=== PATIENT | female | born 2000 | race African-American/Black ===

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

== ENCOUNTER 2019-08-06 21:08 | Emergency (ER) | payer OTHER ==
[~2019-08-06] VITALS: Ht 162.6 cm; Wt 62.3 kg
[2019-08-06 21:09] VITALS: BP 136/64
== END 2019-08-06 22:46 | disposition home or self-care (01) ==
LOC: M ED 21:08
DX: Z32.01 Encounter for pregnancy test, result positive (principal)

== ENCOUNTER 2019-09-20 01:58 | Emergency (ER) | payer OTHER ==
[~2019-09-20] VITALS: Ht 162.6 cm; Wt 67.2 kg
[2019-09-20] MEDS ORDERED: PREN29TA4 PO (02:13)
[2019-09-20 03:30] VITALS: BP 120/77
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
== END 2019-09-20 04:28 | disposition home or self-care (01) ==
LOC: M ED 01:58
DX: O9A.211 Injury, poisoning and certain other consequences of external causes complicating pregnancy, first trimester (principal); S30.1XXA Contusion of abdominal wall, initial encounter; V43.52XA Car driver injured in collision with other type car in traffic accident, initial encounter; Z3A.10 10 weeks gestation of pregnancy; Z79.899 Other long term (current) drug therapy

== ENCOUNTER 2020-02-24 04:22 | Emergency (ER) | payer OTHER ==
[~2020-02-24] VITALS: Ht 167.6 cm; Wt 75.0 kg
[~2020-02-24 04:22] MED LIST: PREN29TA4 PO
--- NOTE | 2020-02-24 06:50 | REPVR ---
PROCEDURE INFORMATION: Exam: US , Limited Exam date and time: 02/24/2020 6:40 AM Age: 19 years old Clinical indication: Pain; Other: Fall; Gestational age or lmp: 32; ; Additional info: Fall, 32 weeks sharp abdominal pain TECHNIQUE: Imaging protocol: Real-time ultrasound of the maternal uterus with image documentation. Exam focused on the clinical indication. COMPARISON: CT ABD/PEL W/IV CONTRAST ONLY 06/10/2018 12:44 AM FINDINGS: Gestation: There is a single intrauterine gestation. Heart rate: A heartbeat was detected with a rate of 140 bpm. Presentation: The lie is vertex. Placenta: The placenta is anterior with no evidence of placenta previa or retroplacental hemorrhage. Amniotic fluid index: The amniotic fluid index measures 11.6 cm. MATERNAL: Cervix: The cervix was not optimally visualized, due to positioning of the head. The best estimate of its length is 3.3 cm. IMPRESSION: 1. Single, live intrauterine . 2. Amniotic fluid index of 11.6 cm, within normal limits. Electronically signed by: Jessica Santos On 02/24/2020 06:49:56 AM
[2020-02-24 07:07] LABS: HEMATOCRIT 31.2 % (36.0-47.0); HEMOGLOBIN 10.1 g/dl (12.0-15.5); MEAN CORPUSCULAR HEMOGLOBIN 27.1 pg (27.0-33.0); MEAN CORPUSCULAR HGB CONC 32.4 g/dl (32.0-36.5); MEAN CORPUSCULAR VOLUME 83.6 fl (80.0-96.0); PLATELET COUNT, AUTOMATED 217 10^3/uL (150-450); RED BLOOD COUNT 3.73 10^6/uL (4.00-5.40); WHITE BLOOD COUNT 9.3 10^3/uL (4.0-10.0)
[2020-02-24 07:40] VITALS: BP 116/68
[2020-02-24] MEDS ORDERED: VITA-158 PO (10:41)
== END 2020-02-24 07:42 | disposition admitted as inpatient to this hospital (09) ==
LOC: M ED 04:22
DX: O9A.213 Injury, poisoning and certain other consequences of external causes complicating pregnancy, third trimester (principal); R10.2 Pelvic and perineal pain; W18.30XA Fall on same level, unspecified, initial encounter; Y92.89 Other specified places as the place of occurrence of the external cause; Z3A.32 32 weeks gestation of pregnancy

== ENCOUNTER 2020-02-24 07:45 | Outpatient (CLI) | payer OTHER ==
[~2020-02-24] VITALS: Ht 167.6 cm; Wt 74.3 kg
[2020-02-24] MEDS ORDERED: LR 1,000 ML IV ONE (08:30)
[2020-02-24 09:13] LABS: INR 1.09; PROTHROMBIN TIME 13.8 SECONDS (11.8-14.0)
[2020-02-24 09:15] LABS: PARTIAL THROMBOPLASTIN TIME 30.1 SECONDS (25.0-38.4)
[2020-02-24] MEDS ORDERED: LR 1,000 ML IV SCH (09:30)
[2020-02-24] MEDS ORDERED: VITA-158 PO (10:41)
== END 2020-02-24 12:30 | disposition home or self-care (01) ==
LOC: M LDO 07:45
PROVIDERS: ATTEND Advanced Practice Midwife
DX: Z04.3 Encounter for examination and observation following other accident (principal); X58.XXXA Exposure to other specified factors, initial encounter; R10.30 Lower abdominal pain, unspecified; Z3A.32 32 weeks gestation of pregnancy
CPT/HCPCS: 36415; 59025; 85610; 85730; G0378; G0463

== ENCOUNTER 2020-04-15 17:59 | Outpatient (CLI) | payer OTHER ==
[~2020-04-15] VITALS: Ht 165.1 cm; Wt 79.0 kg
[~2020-04-15 17:59] MED LIST changes: +VITA-158 PO
[2020-04-15 18:25] VITALS: BP 145/84
[2020-04-15] MEDS ORDERED: FERR325T3 PO (23:21)
--- NOTE | 2020-04-16 09:26 | HPE ---
DATE OF ADMISSION: 04/15/2020 HISTORY: 20-year-old, 1, last menstrual period (LMP) 07/10/2019, estimated date of confinement (EDC) 04/15/2020, at 40 weeks of gestation, contractions 5 minutes apart, moderate intensity. No vaginal bleeding or loss. RISK FACTORS: She is a GDMA1, family history of Downs, [id number] 21 negative and she has anemia. Labs are A+, HIV negative, hep negative, RPR negative, rubella immune. Varicella immune. Gonorrhea and chlamydia are negative. The 28-week glucose was 157. Her 3-hour GTT her fasting was 89, 1-hour 180, 2-hour 176, 3-hour 130. She is GBS positive. Urine is 1.005, pH 7, plus leuk's. Temperature is 98.6, respirations 18, pulse 83, blood pressure 145/84. Examination, no distress. Category 1 strip. Cervix posterior 1 cm, -3 station, vertex, thick. Plan is to readmit her in 3 hours for induction of labor at term. Discharge presently with discharge instructions. She was discharged, counseled and undelivered.
== END 2020-04-15 19:30 ==
LOC: M LDO 17:59
PROVIDERS: ATTEND Obstetrics & Gynecology
DX: O47.1 False labor at or after 37 completed weeks of gestation (principal); Z3A.40 40 weeks gestation of pregnancy

== ENCOUNTER 2020-04-15 22:12 | Inpatient (IN) | payer OTHER ==
[~2020-04-15] VITALS: Ht 165.1 cm; Wt 79.0 kg
[2020-04-15 22:36] VITALS: BP 131/68
[2020-04-15] MEDS ORDERED: PENICILLIN G POTASSIUM IV 5 MU in D5W MINI-BAG PLUS 100 ML IV STA (23:07)
[2020-04-15] MEDS: LR 1,000 ML IV SCH (23:07)
[2020-04-15] MEDS ORDERED: LACTATED RINGER'S 1000 ML IV ONE (23:15)
[2020-04-15] MEDS ORDERED: FERR325T3 PO (23:21)
[2020-04-16] VITALS (58 sets, daily range): BP systolic 97–144; BP diastolic 54–98
[2020-04-16 00:04] LABS: HEMATOCRIT 34.1 % (36.0-47.0); HEMOGLOBIN 10.9 g/dl (12.0-15.5); MEAN CORPUSCULAR HEMOGLOBIN 26.9 pg (27.0-33.0); MEAN CORPUSCULAR VOLUME 84.2 fl (80.0-96.0); PLATELET COUNT, AUTOMATED 237 10^3/uL (150-450); RED BLOOD COUNT 4.05 10^6/uL (4.00-5.40)
[2020-04-16 00:21] LABS: GLUCOSE,RANDOM 41 MG/DL (LESS THAN 200)
[2020-04-16 00:34] LABS: HEMOGLOBIN A1c 5.5 %
[2020-04-16] MEDS ORDERED: PROMETHAZINE INJ 25 MG/ML VIAL (J2550) IV ONE (02:00)
[2020-04-16] MEDS ORDERED: BUTORPHANOL 2 MG/ML INJ (J0595) IV ONE (02:00)
[2020-04-16] MEDS: PENICILLIN G POTASSIUM IV 2.5 MU in IV 1 EA IV SCH ×5 (03:32→19:02)
[2020-04-16] MEDS ORDERED: FENTANYL 2MCG/ML ROPIVACAINE 0.2% IN 0.9% NACL 100ML IVBAG As Ordered ONE ×2 (07:59→17:47)
--- NOTE | 2020-04-16 09:25 | HPE ---
DATE OF ADMISSION: 04/15/2020 HISTORY: This is a 20-year-old, 1, para 0, last menstrual period (LMP) 07/10/2019, estimated date of confinement (EDC) 04/15/2020, at 40 and 1 weeks of gestation was admitted for initially induction of labor, was having contractions 4-5 minutes apart moderate intensity. No vaginal bleeding or discharge. RISK FACTORS: She is GDMA1. She has a family history of Downs, [id number] was negative, and she has anemia. Labs are A+, HIV negative, hepatitis negative, RPR negative, rubella immune. Varicella immune. Gonorrhea and chlamydia are negative. Her 28-week GTT was 157. Her 3-hour GTT following her fasting was 89. Her 1-hour was 180. Her 2-hour was 176 and 3-hour was 130. Presently, she is distressed with contractions. She has a category 1 strip with some variables, but baseline is within normal limits and she has moderate variability. The cervix is still posterior 1 cm, -3 and thick. No vaginal bleeding or loss. Temperature 98.6, blood pressure is 131/68, respirations are 17, pulse is 81. The rest of the examination unremarkable. She is normocephalic, atraumatic. Neck full range of motion. Pupils equal and reactive to light. Distal pulses symmetric. No evidence of deep venous thrombosis (DVT), pulmonary embolism (PE) or superficial phlebitis. Chest is clear bilaterally bases. No wheezes or rhonchi. No costovertebral angle (CVA) tenderness. Abdomen soft. Four quadrant bowel sounds are noted. Symphysis fundus height is appropriate. No rashes, lesions or pruritus. No arthralgia or myalgia. No complaints of cough, wheeze, shortness of breath or dyspnea on exertion. No bleeding. Neuro complete. No bruising. No incontinency, urgency or frequency. No heat or cold or diabetic issues. She has never had any sexually transmitted diseases (STDs). Has a normal Pap smear. Past medical, surgical history is unremarkable. Family history is noncontributory. She does not smoke, drink, abuse drugs. She is to a soldier. No domestic violence. Good support system. We discussed vaginal delivery, which is delivery through the vagina, possibly use of forceps or vacuum devices if needed for maternal indications, forceps or vacuum device to consist with vaginal delivery when normal pushing efforts cannot achieve delivery on their own or when delivery is needed in an emergency for baby's well-being. Medications used to induce or augment labor in order achieve vaginal delivery may be used, an episiotomy may be required to help baby deliver vaginally and may also require repair of any lacerations or tears of the vagina or vulva that are caused at delivery, in some cases emergencies arise such as emergency section, which is used for and maternal indications because continuing labor may not be as safe as having an immediate delivery, risks of vaginal delivery not limited to bleeding, infection, injury of vagina, pelvic structures, injury to baby, damage to the uterus, reaction to anesthesia, uterine rupture, risk of hysterectomy for life-threatening bleeding abnormalities, emergency section for abnormalities may increase risk of hysterectomy or hemorrhage. Also, additional risk for forceps or vacuum include scratches, hematomas to the head or intracranial bleed or injury to bowel or bladder. The patient verbalized understanding, has consented to continue. Safe to proceed. Will monitor contractions. She has had routine blood work done. Hemoglobin was 10.9, hematocrit is 34.1, and platelets were 237. Also ordered was hemoglobin A1c and random sugar which are not available at the present time. They are still pending.
[2020-04-16] MEDS ORDERED: diphenhydrAMINE 50MG/ML VIAL (J1200) IV PRN (09:30)
[2020-04-16] MEDS ORDERED: LACTATED RINGER'S 1000 ML IV PRN (09:30)
[2020-04-16] MEDS ORDERED: NALOXONE INJ 0.4MG/1ML VIAL (J2310 PER 1MG) IV PRN (09:30)
[2020-04-16] MEDS ORDERED: ONDANSETRON 4MG/2ML VIAL IV PRN (09:30)
[2020-04-16] MEDS ORDERED: REFRIGERATOR IV KEYS XX PRN (09:30)
[2020-04-16] MEDS ORDERED: EPIDURAL COMMENT XX SCH (09:30)
[2020-04-16] MEDS ORDERED: EPIDURAL/PCA KEYS XX PRN (09:30)
[2020-04-16] MEDS: FENTANYL/ROPIVACAINE/NACL BAG 100 ML EPIDURAL SCH ×2 (09:33→18:01)
[2020-04-16] MEDS: LR 1,000 ML IV SCH ×3 (12:04→18:46)
--- NOTE | 2020-04-16 12:08 | IPN ---
DATE: 04/16/2020 This lady is a 1, para 0, admitted at 40 and 1 week of gestation. She was supposed to be induced because of AGDM1. However, she did come in with spontaneous labor. In reviewing her overnight, she did have some significant low blood sugars. When we did her random blood sugar it was 41 and this reflected in the monitoring. We did give her some snacks and she does say that overnight or before she goes to bed her blood sugars are extremely low. Repeating a fingerstick it was at 71 and again this morning it was below 90. She was again given some peanut butter and orange juice in order to bring her blood sugar up. She did have a 3-hour GTT of which it appears that she failed 2 of the 4, but she has been only on diet and looking at her blood sugars over her chart they appear to be within good control. She presently has a category 2 strip. She was evaluated on spontaneous contractions, is 4 cm with bulging membranes. She is requesting an epidural. At this point, we are going await for epidural and our plan of care is when she is comfortable to do an artifical rupture of membranes (AROM), evaluate the fluid and assess contraction pattern. At present time, category 2 strip, no evidence of deceleration and some reduced variability. We will monitor her closely.
[2020-04-16] MEDS: ePHEDrine SULFATE 25 MG/5 ML(5MG/ML) SYRINGE IV PRN ×2 (12:19→13:17)
[2020-04-16] MEDS ORDERED: OXYTOCIN 30 UNITS IN 0.9% NaCl 500ML IV BAG (J2590) As Ordered ONE (13:02)
--- NOTE | 2020-04-16 14:52 | REP ---
FOLLOWUP OB ULTRASOUND: 04/16/2020. COMPARISON: 02/24/2020 CLINICAL HISTORY: Unstable supervision of . Unstable lie in labor, position and weight requested. FINDINGS: By initial ultrasound, she would be 40 weeks 1 day. There is a single intrauterine gestation in vertex position. Cervix is obscured by shadowing from the skull. There is an anterior grade 2 placenta without previa or abruption. Amniotic fluid volume is visually normal. The index measurement is 11.6 with normal JERMAINE 7.1 - 21.2. Largest fluid pocket 4.4 cm. Mid cord umbilical artery Doppler shows an S/D ratio 2.36, normal. Forward diastolic flow was maintained throughout. No evidence of a nuchal cord. BIOMETRY:BPD 8.4 cm = 34 weeksHC 31.9 cm = 36 weeksAC 31.4 cm = 35 weeks 6 daysFL 7.7 cm = 39 weeks 2 daysHL 6.5 cm = 38 weeks This gives average ultrasound age 36 weeks 4 days. By initial ultrasound, she would be 40 weeks 1 day with EDC 04/15/2020. Measurements for this dating are less than 5th percentile for BPD, HC, and AC. The measurement ratios were all in the normal range with FL/AC as upper range normal at 0.24. Heart rate 150. Estimated weight: 2955 grams or 6 pounds 8 ounces. This represents less than expected growth. Electronically Signed by Cy Badillo MD 04/16/2020 07:05 P
[2020-04-16] MEDS ORDERED: OXYTOCIN DRIP 30 UNITS in IV 1 EA IV SCH ×2 (16:30→22:58)
[2020-04-16 22:55] LABS: CORD GAS ABE V -4.7; CORD GAS HCO3 V 20.7 MEQ/L; CORD GAS O2 SAT V 74.3 %; CORD GAS PCO2 V 39.4 mmHg; CORD GAS PH V 7.338 UNITS; CORD GAS PO2 V 33.6 mmHg; CORD GAS SBC V 20.1 MEQ/L; CORD GAS TCO2 V 21.9 MEQ/L
[2020-04-16 22:56] LABS: CORD GAS ABE A -8.7; CORD GAS HCO3 A 18.9 MEQ/L; CORD GAS O2 SAT A < 15.0 %; CORD GAS PCO2 A 47.7 mmHg; CORD GAS PH A 7.216 UNITS; CORD GAS PO2 A 11.7 mmHg; CORD GAS TCO2 A 20.4 MEQ/L
[2020-04-16] MEDS ORDERED: MEASLES,MUMPS,RUBELLA VACCINE INJ (MMR-II) (90707) SC SCH (23:00)
[2020-04-16] MEDS ORDERED: DIBUCAINE 1% OINTMENT 30GM TOP PRN (23:00)
[2020-04-16] MEDS ORDERED: DOCUSATE SODIUM 100 MG CAP PO PRN (23:00)
[2020-04-16] MEDS ORDERED: MOM 30ML SUSPENSION UDC PO PRN (23:00)
[2020-04-16] MEDS ORDERED: ANUSOL HC CREAM 30GM TOP PRN (23:00)
[2020-04-16] MEDS ORDERED: ACETAMINOPHEN TAB 650MG DOSE (2X325MG) PO PRN (23:00)
[2020-04-16] MEDS ORDERED: IBUPROFEN 600MG TAB PO PRN (23:00)
[2020-04-16] MEDS ORDERED: ACETAMINOPHEN 500 MG TAB PO PRN (23:00)
[2020-04-16] MEDS ORDERED: RHOGAM 300 MCG (1500 IU) INJ (J2790) IM SCH (23:00)
[2020-04-16] MEDS ORDERED: METHYLERGONOVINE MALEATE 0.2 MG TAB PO PRN (23:00)
[2020-04-16] MEDS ORDERED: OXYTOCIN INJ 10 UNITS/ML VIAL (J2590) IV ONE (23:00)
[2020-04-17 00:40] VITALS: BP 138/76
[2020-04-17 06:00] VITALS: BP 113/56
[2020-04-17] MEDS: IBUPROFEN 800 MG TAB PO PRN ×2 (06:01→19:25)
[2020-04-17 07:46] LABS: HEMATOCRIT 32.2 % (36.0-47.0); HEMOGLOBIN 10.2 g/dl (12.0-15.5); MEAN CORPUSCULAR HEMOGLOBIN 26.5 pg (27.0-33.0); MEAN CORPUSCULAR HGB CONC 31.7 g/dl (32.0-36.5); MEAN CORPUSCULAR VOLUME 83.6 fl (80.0-96.0); PLATELET COUNT, AUTOMATED 194 10^3/uL (150-450); RED BLOOD COUNT 3.85 10^6/uL (4.00-5.40); WHITE BLOOD COUNT 11.9 10^3/uL (4.0-10.0)
[2020-04-17] MEDS: PRENATAL VITAMINS CHEWABLE TABLET PO SCH (08:13)
--- NOTE | 2020-04-17 08:32 | IPN ---
DATE: 04/16/2020 20-year-old 1 admitted at 41 weeks of gestation. She was supposed to be initially for induction of labor but she was having contractions. She was evaluated and found to be 2-3 cm posterior with high presenting part. Because of the difficulty in establishing the presenting part, an ultrasound was performed and revealed that it was unstable lie. Showed that the cervix was obscured by the skull, had unexpected decrease in its weight, the vertex was presenting. She was having contractions about 9 minutes apart and our evaluation of the cervix was it was still posterior soft and about 3 cm and therefore we discussed the option of a Whitehead bulb with Pitocin. The patient was acceptable. Therefore, under sterile examination, a speculum placed in the vagina, cervix was viewed. A Cook catheter was placed with 60 mL in the uterine bulb and 40 mL in the vagina bulb. The speculum was removed. Pitocin will be started and she is presently having category 1 strip. She did have occasional variables but those have resolved.
--- NOTE | 2020-04-17 10:02 | IPN ---
DATE: 04/16/2020 This is a 1, para 0, at 40 and 1 weeks of gestation, AGDM1, came in active labor. She had a Whitehead bulb placed with Pitocin augmentation. The Whitehead bulb did fall out. We reexamined her. She was at 7 cm, bulging membranes, -3 station; a bit asynclitic to the left. An artifical rupture of membranes (AROM) was done draining meconium stained liquor, which is light. Still 7 cm, moderate contractions. Category 1 strip with the occasional variable. Safe to proceed.
--- NOTE | 2020-04-17 10:22 | IPN ---
DATE: 04/17/2020 This lady is a 20-year-old, 1, now para 1, was admitted at 40 weeks of gestation, active labor. She had a spontaneous vaginal delivery of a male , 6 pounds 14 ounces (3110 grams). score of 8 and 9 at one and five minutes, respectfully. Cord was around the neck times one. Heavy meconium staining of the baby and the placenta. Arterial pH 7.21, base excess -8.7, venous pH 7.33, base excess -4.7. She is an AGDM1, has anemia and was group B streptococcus (GBS) positive appropriately treated. First day we discussed phlebitis, cystitis, mastitis, endometritis, cellulitis, diet, exercise pain management, perineal breast and wound care. Meds are to be picked up at [facility]. She will have a 6-week checkup. Presently, she is breast-feeding doing well, voiding, passing gas. She has no rashes, lesions or pruritus. No arthralgia or myalgia. No complaint of joint pain. No complaint cough, wheeze, shortness of breath or dyspnea on exertion. No nausea, vomiting, diarrhea or constipation. Our plan of management is for discharge tomorrow. We are going to circumcise the young man today after neonatology has a chance to evaluate the baby. The patient's milestones are progressing well. All questions were answered. 20-minute discussion. Her blood pressure today is 113/56, respirations are 18, pulse 69, temperature is 98.3. Her lab work is pending. We did an A1c and a random sugar. She has been having trouble with her sugars at night in which she has been running under 90s, sometimes in the 70s, sometimes in the 40s, and we have encouraged to have a snack prior to going to bed. She is on no medications at the present time and hopefully will continue with diet control.
[2020-04-17 11:01] LABS: HEMOGLOBIN A1c 5.2 %
[2020-04-17 18:00] VITALS: BP 123/76
[2020-04-18 06:00] VITALS: BP 117/60
--- NOTE | 2020-04-18 08:00 | IPNPDOC ---
Progress Note Date of Service: Apr 18, 2020 Day#: 1 Progress Note SUBJECT: Patient is a 20 yo s/p ppd #2. Today without concerns. She has been ambulating, voiding spontaneously without issue and tolerating regular diet. Reports lochia is like a normal period. Patient plans on formula feeding. she is not interested in contraceptive options at this time. OBJECTIVE: VITAL SIGNS: Within normal limits, afebrile. Alert and oriented times three. Abdomen: Fundus firm at U-2. Soft, NTTP. LE: No edema/erythema/tenderness A/p ppd #2, doing well. discussed contraceptive options, patient not interested. recommend at least 12 months prior to next . con leave form provided. d/c home today. DO Natasha VS, I&O, 24H, Fishbone Vital Signs/I&O Vital Signs Date Time Temp Pulse Resp B/P (MAP) Pulse Ox O2 Delivery O2 Flow Rate FiO2 04/18/20 06:00 98.0 69 16 117/60 (79) 99 Room Air LOLA MALIK DO Apr 18, 2020 08:00
--- NOTE | 2020-04-18 08:03 | OBDS ---
[facility] Obstetrical Discharge Sum. Obstetrical Discharge Summary : 1 Term: 1 Pre-term: 0 Abortions: 0 Livin VDRL: Non-Reactive Rh: Positive Rubella: Immune Infant Sex: Male Weight: grams (3110) Anesthesia: Regional Anesthesia A/P, Post Course List any complications Admission diagnosis: 1. Gravid at 40wks gestation Discharge diagnosis: 1. () Condition at Discharge: Stable Discharge Instructions: Home Activity: as tolerated Diet: regular Medications: filled at [facility] Follow-up: call ob clinic to make 6-8wks Hospital course: Patient admitted at 40wks gestation admitted for labor. She progressed to have a spontaneous vaginal delivery. course uncomplicated and patient discharged home on day #2. LOLA MALIK DO Apr 18, 2020 01:45
[2020-04-18] MEDS: PRENATAL VITAMINS CHEWABLE TABLET PO SCH ×2 (08:58→08:59)
--- NOTE | 2020-04-22 07:00 | DN ---
DATE: 04/16/2020 This lady is a 20-year-old, 1, admitted in active labor at term. She is an AGDM 1. She eventually got fully dilated over an intact perineum and delivered a live male , 6 pounds 14 ounces, 3110 grams, Apgars of 8 and 9 at one and five minutes respectfully. Cord was around the neck x1. Placenta delivered spontaneously thereafter and was quite stained with meconium, as was the placenta. The baby just required minimal resuscitation by suctioning, not deep, at the bedside. The anterior, posterior and lateral figueroa were complete. There was no evidence to indicate any tears or lacerations. She had a little bit of a blood vessel that was pumping that was oversewn with #2-0 Vicryl on a J339. The arterial pH for the baby was 7.21, base excess -8.7; venous pH was 7.33, base excess -4.7. In summary, term gestation, delivered a live male infant, improved. Uterus again was well contracted under Pitocin.
== END 2020-04-18 12:00 | disposition home or self-care (01) | DRG 807 ==
LOC: M LDI 22:12 → M OBS 04-17 00:40
PROVIDERS: ADMIT Obstetrics & Gynecology; ATTEND Obstetrics & Gynecology
PROC: 10E0XZZ Delivery of Products of Conception, External Approach (ICD-10-PCS; principal; 2020-04-16)
PROC: 10907ZC Drainage of Amniotic Fluid, Therapeutic from Products of Conception, Via Natural or Artificial Opening (ICD-10-PCS; 2020-04-16)
DX: O24.420 Gestational diabetes mellitus in childbirth, diet controlled (principal); Z37.0 Single live birth; O99.824 Streptococcus B carrier state complicating childbirth; Z3A.41 41 weeks gestation of pregnancy; D64.9 Anemia, unspecified; O99.02 Anemia complicating childbirth; O69.81X0 Labor and delivery complicated by cord around neck, without compression, not applicable or unspecified; O77.0 Labor and delivery complicated by meconium in amniotic fluid

== ENCOUNTER 2020-04-20 16:14 | Emergency (ER) | payer OTHER ==
[~2020-04-20] VITALS: Ht 165.1 cm; Wt 75.6 kg
[~2020-04-20 16:14] MED LIST changes: +FERR325T3 PO
[2020-04-20 17:49] LABS: BASO % 0.2 % (0.0-1.0); EOS # 0.1 10^3/uL (0.0-0.5); EOS % 1.2 % (0.0-3.0); HEMATOCRIT 34.2 % (36.0-47.0); HEMOGLOBIN 11.2 g/dl (12.0-15.5); LYMPH # 1.9 10^3/uL (1.5-5.0); LYMPH % 23.1 % (24.0-44.0); MEAN CORPUSCULAR HEMOGLOBIN 27.3 pg (27.0-33.0); MEAN CORPUSCULAR HGB CONC 32.7 g/dl (32.0-36.5); MEAN CORPUSCULAR VOLUME 83.4 fl (80.0-96.0); MONO # 0.5 10^3/uL (0.0-0.8); MONO % 5.8 % (0.0-5.0); NEUTROPHILS # 5.6 10^3/uL (1.5-8.5); NEUTROPHILS % 69.3 % (36.0-66.0); PLATELET COUNT, AUTOMATED 246 10^3/uL (150-450); WHITE BLOOD COUNT 8.1 10^3/uL (4.0-10.0)
--- NOTE | 2020-04-20 18:06 | REPVR ---
PROCEDURE INFORMATION: Exam: CT Head Without Contrast Exam date and time: 04/20/2020 5:48 PM Age: 20 years old Clinical indication: Weakness, facial; Additional info: Left facial weakness, numbness-- TECHNIQUE: Imaging protocol: Computed tomography of the head without contrast. Radiation optimization: All CT scans at this facility use at least one of these dose optimization techniques: automated exposure control; mA and/or kV adjustment per patient size (includes targeted exams where dose is matched to clinical indication); or iterative reconstruction. COMPARISON: No relevant prior studies available. FINDINGS: Brain: No acute infarction. No hemorrhage. Unremarkable white matter. No mass effect. Ventricles: Normal. No ventriculomegaly. Bones/joints: Unremarkable. No acute fracture. Sinuses: Visualized sinuses are unremarkable. No fluid levels. Mastoid air cells: Visualized mastoid air cells are well aerated. Soft tissues: Unremarkable. IMPRESSION: No acute intracranial abnormality. Electronically signed by: Demi Downey On 04/20/2020 18:06:05 PM
[2020-04-20 18:15] LABS: INR 1.01; PARTIAL THROMBOPLASTIN TIME 28.8 SECONDS (25.0-38.4)
[2020-04-20 18:20] LABS: BLOOD UREA NITROGEN 5 MG/DL (7-18); CARBON DIOXIDE LEVEL 27 MEQ/L (21-32); CHLORIDE LEVEL 107 MEQ/L (98-107); CREATININE FOR GFR 0.69 MG/DL (0.55-1.30); GLOMERULAR FILTRATION RATE > 60.0 (>60); GLUCOSE, FASTING 73 MG/DL (70-100); POTASSIUM SERUM 4.2 MEQ/L (3.5-5.1); SODIUM LEVEL 141 MEQ/L (136-145)
--- NOTE | 2020-04-20 20:30 | REPVR ---
PROCEDURE INFORMATION: Exam: MR Head Without Contrast Exam date and time: 04/20/2020 8:20 PM Age: 20 years old Clinical indication: Weakness, facial; Additional info: Left facial palsy, R/O CVA TECHNIQUE: Imaging protocol: MR of the head without contrast. COMPARISON: CT Head without contrast 04/20/2020 5:42 PM FINDINGS: Brain: There is no restricted diffusion to suggest acute infarction. On the FLAIR sequence there is no evidence of demyelination, acute intracranial hemorrhage or mass. No prior microhemorrhages. Ventricles: Normal. No ventriculomegaly. Sella: The pituitary gland is prominent measuring 7.5 mm cranial caudal which is not atypical for young females. No acute hemorrhage is identified. The pituitary gland is not well assessed Bones/joints: Unremarkable. Sinuses: There is no significant mucoperiosteal thickening or air-fluid levels in the paranasal sinuses. Mastoid air cells: The middle ear cavities and mastoid air cells are clear. Orbits: Unremarkable. Soft tissues: Unremarkable. IMPRESSION: No acute intracranial findings specifically no evidence of restricted diffusion to suggest acute infarction. Electronically signed by: Demi Downey On 04/20/2020 20:29:50 PM
[2020-04-20] MEDS ORDERED: ACYC1CAP20 PO (20:38)
[2020-04-20] MEDS ORDERED: PRED20TA PO (20:38)
[2020-04-20] MEDS ORDERED: predniSONE 20 MG TAB PO ONE (20:45)
[2020-04-20] MEDS ORDERED: ACYCLOVIR 200 MG CAPSULE PO ONE (20:45)
[2020-04-20 20:52] VITALS: BP 144/90
[2020-04-22 19:08] LABS: Lyme Disease IgG/IgM Antibodie <0.91 ISR (0.00-0.90); Lyme Disease IgM Ab Quantitati <0.80 index (0.00-0.79)
== END 2020-04-20 21:02 | disposition home or self-care (01) ==
LOC: M ED 16:14
DX: G51.0 Bell's palsy (principal); Z79.899 Other long term (current) drug therapy

== ENCOUNTER 2020-07-18 17:33 | Emergency (ER) | payer OTHER ==
[~2020-07-18] VITALS: Ht 165.1 cm; Wt 69.9 kg
[~2020-07-18 17:33] MED LIST changes: +ACYC1CAP20 PO; +PRED20TA PO
[2020-07-18 20:12] LABS: HEPATITIS B SURFACE ANTIBODY POSITIVE (POSITIVE); HEPATITIS B SURFACE ANTIGEN NEGATIVE (NEGATIVE); HEPATITIS C VIRUS ABY INDEX 0.1 INDEX (<0.8); HIV 1&2 SCREEN CENTAUR NEGATIVE (NEGATIVE)
[2020-07-18] MEDS ORDERED: DIFL150T PO (20:43)
[2020-07-18] MEDS ORDERED: FLUCONAZOLE 50MG TABLET PO ONE (20:45)
[2020-07-18 20:51] VITALS: BP 173/88
[2020-07-18 21:43] LABS: CHLAMYDIA DNA AMPLIFICATION POSITIVE (NEGATIVE); GC DNA AMPLIFICATION NEGATIVE (NEGATIVE)
[2020-07-22 07:08] LABS: HSV-1 DNA Negative (Negative); HSV-2 DNA Negative (Negative)
== END 2020-07-18 20:52 | disposition home or self-care (01) ==
LOC: M ED 17:33
DX: B37.3 Candidiasis of vulva and vagina (principal); A56.00 Chlamydial infection of lower genitourinary tract, unspecified